=== PATIENT | female | born 1975 | race Caucasian/White ===

== ENCOUNTER 2021-12-13 16:23 | Emergency (ER) | payer OTHER ==
[~2021-12-13 16:23] MED LIST: ALEVE220 M1 PO; PERCOCET 5-3251 EACH PO; PRILOSEC20 MG PO; ZOFRAN8 MG PO
== END 2021-12-13 20:30 | disposition other institution (70) ==
LOC: FER 16:23
DX: I72.4 Aneurysm of artery of lower extremity (principal); I10 Essential (primary) hypertension; I48.91 Unspecified atrial fibrillation; Z79.01 Long term (current) use of anticoagulants; Z79.899 Other long term (current) drug therapy; Z95.5 Presence of coronary angioplasty implant and graft
CPT/HCPCS: 93971